=== PATIENT | male | born 1980 ===

== ENCOUNTER 2017-07-12 14:26 | Outpatient (CLI) | payer OTHER ==
[~2017-07-12 14:26] MED LIST: AMOX1TAB5 PO; HYDRODIURIL PO; PROCARDIA; PROCARDIA PO; PROCARDIA90 MG/BLIS; SURFAK240 M1 PO; TRAMADOL HCL-AP1 TAB PO
== END 2017-07-12 14:48 | disposition home or self-care (01) ==
LOC: LAB 14:26
DX: K22.0 Achalasia of cardia (principal); Z01.810 Encounter for preprocedural cardiovascular examination; Z01.812 Encounter for preprocedural laboratory examination

== ENCOUNTER 2017-07-12 15:30 | Inpatient (IN) | payer OTHER ==
[~2017-07-12] VITALS: Ht 177.8 cm; Wt 117.9 kg
[2017-07-15] MEDS ORDERED: LOTREL 5-20 MG1 CAP PO (08:09)
[2017-07-15] MEDS ORDERED: PRILOSEC OTC20 MG PO (08:10)
[2017-07-20] MEDS ORDERED: POLY119PG PO (10:07)
[2017-07-20] MEDS ORDERED: NEXIUM 24HR20 MG PO (10:07)
[2017-07-20] MEDS ORDERED: PERCOCET 5-3251 EACH PO (10:07)
[2017-07-20] MEDS ORDERED: CARAFATE1 GM/10 ML PO (10:07)
[2017-07-22] MEDS ORDERED: AMOX1TAB5 PO (16:12)
[2017-07-22] MEDS ORDERED: PERCOCET 5-3251 EACH PO (16:12)
== END 2017-07-22 18:19 | disposition home or self-care (01) | DRG 327 ==
LOC: SURG 07-20 05:30 → O/R 07-20 05:30 → SURH 07-20 07:15 → SURG 07-20 10:46 → SURH 07-20 11:30 → SURG 07-22 18:19
PROVIDERS: Surgery
PROC: 0BQT4ZZ Repair Diaphragm, Percutaneous Endoscopic Approach (ICD-10-PCS; 2017-07-20)
PROC: 0DJ08ZZ Inspection of Upper Intestinal Tract, Via Natural or Artificial Opening Endoscopic (ICD-10-PCS; 2017-07-20)
PROC: 0D844ZZ Division of Esophagogastric Junction, Percutaneous Endoscopic Approach (ICD-10-PCS; principal; 2017-07-20 11:30)
PROC: 0DV44ZZ Restriction of Esophagogastric Junction, Percutaneous Endoscopic Approach (ICD-10-PCS; 2017-07-20 11:30)
DX: K22.0 Achalasia of cardia (principal); J98.11 Atelectasis; K44.9 Diaphragmatic hernia without obstruction or gangrene; K42.9 Umbilical hernia without obstruction or gangrene